=== PATIENT | male | born 1950 | race Caucasian/White ===

== ENCOUNTER 2020-09-04 20:31 | Emergency (ER) | payer BC, SELFPAY ==
--- NOTE | ~2020-09-04 | XR_ITS ---
EXAMINATION: XR HAND, RIGHT CLINICAL INFORMATION: Agent. Contusion over the hyper thenar eminence COMPARISON: None TECHNIQUE: PA, lateral, and oblique views of the right hand. FINDINGS: A small old avulsion fracture tip of ulnar styloid process. Also visualized are old fracture along the radial aspect of proximal phalanx proximal segment third digit. No visible acute fracture or dislocation seen. There is no subluxation. The joint spaces are maintained normal. XR/XR hand RT min 3V IMPRESSION: No acute fracture or dislocation seen. There is old avulsion fracture along the ulnar styloid process and a small fracture fragment radial aspect proximal phalanx ,proximal end third digit
[2020-09-04 20:32] VITALS: BP 154/91; PULSE 70; RESP 16; TEMP 36.7; O2SAT 98; BMI 27.1
--- NOTE | 2020-09-04 22:15 | ED.EXTPRO ---
HPI - Extremity Problem General Chief complaint: Extremity Injury, Upper Stated complaint: fall Time Seen by Provider: 09/04/20 22:15 Source: patient Mode of arrival: ambulatory History of Present Illness HPI Narrative: 70-year-old male presents with injury laceration to the chin, pain at the right hypothenar, mild abrasions to 4th and 5th knuckles of the right hand, pain at the left thumb without loss of range of motion. Patient also states he chipped a couple of teeth but denies any head strike or loss of consciousness. The contacts of the injuries are a game of tennis where he thought he was going to be able to return a ball successfully which resulted in the fall on outstretched hands and she can with the racquet handle pushing into the right hand. In addition, patient states that he has had some difficulty with ambulation and suspects he may have strained the hamstring on the right lower extremity. Related Data Allergies Allergy/AdvReac Type Severity Reaction Status Date / Time No Known Allergies Allergy Mild N/A Unverified 12/30/19 16:10 Review of Systems Review of Systems: As stated in HPI 10 point review of systems is otherwise negative. PMFSH Past Medical History Source: nursing notes reviewed Medical History High cholesterol Hypertension Social History Social History Alcohol intake: never Smoking Status: Never smoker Advance Directives: No Physical Exam Vital Signs: Vital Signs: Last Vital Signs Temp 98.1 F 09/04/20 20:32 Pulse 75 09/04/20 22:59 Resp 16 09/04/20 22:59 BP 153/92 H 09/04/20 22:59 Pulse Ox 100 09/04/20 22:59 Body Mass Index 27.1 VITAL SIGNS: Reviewed. GENERAL: Well developed, well nourished, in no acute distress. HEAD: Normocephalic/atraumatic EYES: PERRLA, EOMI EARS: Ext canals without abnormality NOSE: Nares patent bilateral OROPHARYNX: no oral lesions noted, posterior pharynx clear, unable to identify the teeth that were chipped but there are no intraoral lacerations or contusions NECK: Supple, no adenopathy, there is a noted 3 cm laceration to the chin LUNGS: Normal breath sounds. SpO2<98> CARDIOVASCULAR: Regular rate and rhythm without noted murmurs ABDOMEN: Soft, non-tender, non-distended with bowel sounds. RIGHT HAND: There is noted contusion over the right hypothenar without limitation of range of motion within the hand or wrist and good capillary refill. LEFT HAND: No noted abrasion, deformity, swelling/erythema, and patient continues to have full range of motion of the left thumb. NEUROLOGIC: Alert and oriented x 4. Course Course Course Narrative: 70-year-old male with history and clinical presentation consistent with mechanical fall and multiple minor injuries. Will repair the laceration under the chin and patient states his Tdap is up-to-date. Procedures Laceration Laceration 1: Site: face (Chin) Size (cm): 3.5 Description: linear Depth: simple, single layer Local Anesthetic: lidocaine 2% Amount of anesthesia used (mL): 2 Pre-repair: wound explored, irrigated extensively and deep structures intact Skin layer closed with: nylon Size (cm): 4-0 Number of sutures: 7 Technique: simple, interrupted Discharge Plan Discharge Clinical Impression: Laceration of chin without complication, Contusion of hand, right, Abrasion, Right hamstring muscle strain Patient Disposition: Home, Self-Care Instructions: Facial Laceration (ED), Care For Your Stitches (ED), Contusion in Adults (ED), Hamstring Injury (ED) Additional Instructions: 1. Please resume all home medications as prescribed. 2. Recommend [id number] Tylenol/ibuprofen as needed for aches and pains relating tear injury. 3. Sutures should be removed in no more than 5 days. May cleanse with soap and water with re-application of antibiotic ointment and coverage with a Band-Aid as possible given location your injury. 4. My recommendation is that if your hamstring continues to bother you, please discussed with your primary care provider for a work note or arrangements for your night call. Return to the ER for any worsening of your symptoms. Referrals: Marlo Strange MD [Primary Care Provider] - 2 days
[2020-09-04] MEDS: Lidocaine HCl 2 % MPF 5 ML VIAL SUBCUT (22:48)
[2020-09-04] MEDS: Ketorolac Tromethamine 15 MG/ML VIAL IM (22:56)
[2020-09-04] MEDS: Acetaminophen 325 MG TABLET 975 MG PO (22:56)
[2020-09-04 22:59] VITALS: BP 153/92; PULSE 75; RESP 16; O2SAT 100
[2020-09-04] MEDS: Bacitracin Oint 14 GM TUBE 1 APPL TOPICAL (23:41)
== END 2020-09-04 23:48 | disposition home or self-care (01) ==
PROVIDERS: Emergency Provider Student in an Organized Health Care Education/Training Program; PCP Internal Medicine
DX: S01.81XA Laceration without foreign body of other part of head, initial encounter (principal); S60.511A Abrasion of right hand, initial encounter; S60.221A Contusion of right hand, initial encounter; S86.111A Strain of other muscle(s) and tendon(s) of posterior muscle group at lower leg level, right leg, initial encounter; W01.198A Fall on same level from slipping, tripping and stumbling with subsequent striking against other object, initial encounter; Y93.73 Activity, racquet and hand sports; Y92.312 Tennis court as the place of occurrence of the external cause; Y99.9 Unspecified external cause status
CPT/HCPCS: 12013; 73130; 96372; 99284; J1885

== ENCOUNTER 2023-06-23 16:44 | Outpatient (REF) | payer MEDICARE, SELFPAY ==
--- NOTE | ~2023-06-23 | XR_ITS ---
EXAMINATION: XR CHEST CLINICAL INFORMATION: Cough. COMPARISON: None available. TECHNIQUE: 3 views of the chest. FINDINGS: Levoscoliosis of the thoracic spine with multilevel degenerative changes. Heart size is normal. There is no gross pneumothorax. No pleural effusion. Nodular densities overlying the anterior aspect of the right sixth rib and left sixth rib may represent nipple shadows versus pulmonary nodules and recommend repeat views after placement of nipple markers for confirmation. Mild streaky opacities at the left lung base may represent atelectasis/scar versus an infectious/inflammatory process. XR/XR chest 2V IMPRESSION: Nodular densities overlying the anterior aspect of the right sixth rib and left sixth rib may represent nipple shadows versus pulmonary nodules and recommend repeat views after placement of nipple markers for confirmation. Mild streaky opacities at the left lung base may represent atelectasis/scar versus an infectious/inflammatory process. This study was presented 06/25/2023 for interpretation. PSA staff will provide results to referring provider at this time.
== END 2023-06-23 16:45 | disposition home or self-care (01) ==
LOC: HO.XRAY 16:44
PROVIDERS: PCP Internal Medicine; Visit Provider Nurse Practitioner Family
DX: R05.9 Cough, unspecified (principal)
CPT/HCPCS: 71046

== ENCOUNTER 2023-11-13 06:01 | Outpatient (REF) | payer MEDICARE, SELFPAY ==
[2023-11-13 06:16] LABS: MANUAL DIFF FLAG NO
[2023-11-13 07:27] LABS: Basophils Percent Auto 0.5 % (0-2); Eosinophils Absolute Auto 0.1 X10*3/uL (0.0-0.4); Eosinophils Percent Auto 0.9 % (0-4); Hematocrit 41.7 % (42.0-52.0); Hemoglobin 14.3 g/dl (14.0-18.0); Imm Gran Abs Auto 0.03 X10*3/uL (0.00-0.03); Imm Gran Pct Auto 0.5 % (0.0-0.4); Lymphocytes Absolute Auto 1.6 X10*3/uL (1.2-4.9); Lymphocytes Percent Auto 28.3 % (20-40); Mean Corpuscular HGB Conc 34.3 g/dl (31.0-36.0); Mean Corpuscular Volume 87.6 fL (80.0-98.0); Mean Platelet Volume 9.2 fL (9.4-12.4); Monocytes Absolute Auto 0.5 X10*3/uL (0.1-1.2); Monocytes Percent Auto 9.6 % (2-11); Neutrophils Absolute Auto 3.4 x10*3/uL (2.0-8.3); Neutrophils Percent Auto 60.2 % (45-73); Platelet Count 232 X10*3/uL (160-400); Red Blood Count 4.76 X10*6/uL (4.60-5.80); White Blood Count 5.7 X10*3/uL (4.8-10.8)
[2023-11-13 07:28] LABS: Estimated Average Glucose 120 mg/dL; Hemoglobin A1c % 5.8 % (<6.0)
[2023-11-13 07:34] LABS: Creatinine Urine 170.96 mg/dL; Microalbum/Creatinine Ratio Ur 5.8 ug/mg cr (<30)
[2023-11-13 07:37] LABS: Alanine Aminotransferase 26 U/L (0-40); Albumin Level 4.4 g/dL (3.5-5.0); Alkaline Phosphatase 61 U/L (39-117); Anion Gap 13 (12-20); Aspartate Amino Transferase 20 U/L (5-37); Bilirubin Total 0.5 mg/dL (0.0-1.0); Blood Urea Nitrogen 18 mg/dL (9-16); Calcium 9.3 mg/dL (8.4-10.2); Carbon Dioxide 25 mmol/L (22-29); Chloride 108 mmol/L (96-108); Estimated Glomerular Filt Rate > 60; Glucose Random 106 mg/dL (60-115); HDL Cholesterol 35 mg/dL (>40); Potassium 4.1 mmol/L (3.3-5.1); Sodium 142 mmol/L (135-145); Total Protein 7.5 g/dL (6.5-8.0)
== END 2023-11-13 06:02 | disposition home or self-care (01) ==
LOC: HO.LAB 06:01
PROVIDERS: PCP Internal Medicine; Visit Provider Internal Medicine
DX: I10 Essential (primary) hypertension (principal); E78.2 Mixed hyperlipidemia; R73.03 Prediabetes
CPT/HCPCS: 36415; 80053; 82043; 82570; 83036; 83718; 85025

== ENCOUNTER 2024-11-22 10:00 | Emergency (ER) | payer MEDICARE, SELFPAY ==
--- OUTSIDE RECORDS SUMMARY | 2024-02-04 06:30 | XMS_ITS ---
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 Name Role Phone Brian Villasenor MD Primary Care Provider UnavailTammy Reynolds [phone] Encounters Encounter Location Date Provider Diagnosis [facility] [address] [place] [address] 02/04/2024 Tammy Fernández Plan Of Treatment No Information Progress Notes * Gerry SAAB MDOB:[birth year] (74 yo M)Acc No.[id number]:02/04/2024 Progress Notes Patient: Gerry WASHINGTON Magdaleno Provider: Sam Fernández DPM :1950 A ge:73 Y S ex:Male Date:02/04/2024 Address:[address] [id number] Pcp:Brian Villasenor MD Subjective: * Chief Complaints: * * Medical History: Objective: * Vitals: Assessment: Plan: * Treatment: * Images: * The named appointment provid er may or may not be the originator of this progress note, and it is not deemed complete until electronically signed by the appointment provider. Sign off status: Pending * Provider: Sam Fernández DPM Date: 1 Generated for Printi ng/Faxing/eTransmitting on: 0 11/22/2024 11:30 AM EDT
--- NOTE | ~2024-11-22 | XR_ITS ---
EXAMINATION: XR FOOT 1-2 VIEWS RIGHT HISTORY: PAIN, REDNESS COMPARISON: There are no prior studies available for comparison. FINDINGS: Three views of the right foot are submitted. Osseous mineralization is normal. The patient is status post internal fixation of the distal fibula with a sideplate and multiple orthopedic screws. There is no acute fracture or dislocation. The joint spaces are preserved. There is mild soft tissue swelling in the region of the 1st MTP joint. XR/XR foot RT 2V IMPRESSION: Mild soft tissue swelling in the region of the 1st MTP joint. No acute osseous abnormality is identified. Electronically signed by: Paul Torres MD 11/22/2024 11:13 AM EDT
[2024-11-22 10:29] VITALS: BP 139/63; PULSE 65; RESP 16; TEMP 36.6; O2SAT 97; BMI 26.7
[2024-11-22 10:48] LABS: MANUAL DIFF FLAG NO
[2024-11-22 10:51] LABS: Hematocrit 39.4 % (42.0-52.0); Hemoglobin 13.2 g/dl (14.0-18.0); Imm Gran Abs Auto 0.03 X10*3/uL (0.00-0.03); Imm Gran Pct Auto 0.5 % (0.0-0.4); Lymphocytes Absolute Auto 1.3 X10*3/uL (1.2-4.9); Mean Corpuscular HGB Conc 33.5 g/dl (31.0-36.0); Mean Corpuscular Hemoglobin 29.4 pg (27.0-33.0); Mean Corpuscular Volume 87.8 fL (80.0-98.0); NRBC Abs Auto 0.000 X10*3/uL (0.0-0.012); NRBC Pct Auto 0.0 /100WBC (0.0-0.2); Platelet Count 200 X10*3/uL (160-400); Red Blood Count 4.49 X10*6/uL (4.60-5.80); White Blood Count 6.4 X10*3/uL (4.8-10.8)
--- NOTE | 2024-11-22 10:55 | ED.GENADULT ---
HPI - General Adult General Chief complaint: Extremity Injury, Lower Stated complaint: R toe Pain, getting worse Time Seen by Provider: 11/22/24 10:55 History of Present Illness ED Provider: Mingo SERRA narrative: The patient is a 74-year-old male. 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 He is generally active and in good health although he is on lisinopril and atorvastatin. He has no history of any recent major medical events of any kind. The patient says that he developed pain in his right foot near the medial aspect of the foot at the first MTP joint. This morning the pain was somewhat worse and he noticed some redness on the medial aspect of the foot and on the dorsum. He has had no fever, sweats, chills. He denies any injury. He has never had pain like this before. He has no history of gout. He is worried he might have osteomyelitis. Related Data Allergies Allergy/AdvReac Type Severity Reaction Status Date / Time No Known Allergies Allergy Mild N/A Verified 11/22/24 10:31 Review of Systems Review of Systems: Yes all other systems are reviewed and are negative REPLACED BY [facility] Past Medical History Medical History High cholesterol Hypertension Social History Social History Alcohol intake: never Advance Directives: Yes Advance Directives Information Provided: Yes Advance Directives on File: No Physical Exam ED Vital Signs: Vital Signs - 24 hr 11/22/24 10:29 Temperature 97.8 F Pulse Rate 65 Respiratory Rate 16 Blood Pressure 139/63 Pulse Oximetry 97 Oxygen Delivery Method Room Air BMI result Body Mass Index 26.7 Const Other: The patient looks as if he is a healthy and vigorous 74-year-old. He does not appear in any distress. Orientation/consciousness: patient oriented x3 HENMT Other: The face is symmetrical. ?Mucous membranes moist. Eyes Other: Pupils are round equal, conjunctivae are clear, extraocular movements intact Neck Neck: Yes normal visual inspection and Yes full ROM Resp Effort & Inspection: normal respiratory effort Auscultation: clear to auscultation bilaterally Cardio Other: No cardiac murmur Rate: regular rate Rhythm: regular rhythm Heart sounds: S1 normal heart sound present and S2 normal heart sound present Skin Other: There is some mild redness to the portion of the skin on the dorsum of the foot near the 1st MTP joint. The skin on the plantar aspect of the foot is normal. There was no soft tissue swelling of the skin. Neuro Other: Normal motor and sensory function of the right foot. General: patient oriented x3, moves all extremities, no focal motor deficits and CN's II-XI intact bilaterally Extrem Other: There was no obvious swelling to the right foot. There is some slight erythema with indistinct borders near the 1st MTP joint on the dorsal aspect of the foot. The plantar aspect foot appears perfectly normal. The patient can move all the toes normally without apparent discomfort. Good pulses in the foot. Medical Decision Making Medical Decision Making MDM Narrative: The patient is here for acute right foot pain. The pain seems to be centered around the medial aspect of the foot at the 1st MTP joint. He does not have any pain on the top of the joint or on the plantar aspect of the joint. I can put the joint through an excellent range of motion. This would be unlikely to be a septic arthritis or gout. He does seem quite focally tender with palpation of the medial aspect of the joint however. This makes me think that he has some kind of acute connective tissue inflammatory process causing some pain and erythema. There was no warmth to the erythema. I do not think the erythema is clearly suggestive of a cellulitis. I think this would be an unusual presentation for Lyme disease although the patient is a somewhat outdoorsy person. Overall my impression is that this is probably a noninfectious inflammatory process that will be managed conservatively with rest, ice, elevation, and anti-inflammatories. He should plan on following up with his primary care doctor and possibly Orthopedics as well. Lab Data 11/22/24 10:43 11/22/24 10:43 Labs: Lab Results 11/22/24 Range/Units 10:43 WBC 6.4 (4.8-10.8) X10*3/uL RBC 4.49 L (4.60-5.80) X10*6/uL Hgb 13.2 L (14.0-18.0) g/dl Hct 39.4 L (42.0-52.0) % MCV 87.8 (80.0-98.0) fL MCH 29.4 (27.0-33.0) pg MCHC 33.5 (31.0-36.0) g/dl RDW 13.2 (11.0-16.0) % Plt Count 200 (160-400) X10*3/uL MPV 9.1 L (9.4-12.4) fL Immature Gran % (Auto) 0.5 H (0.0-0.4) % Neut % (Auto) 68.5 (45-73) % Lymph % (Auto) 20.9 (20-40) % Perkins % (Auto) 9.2 (2-11) % Eos % (Auto) 0.6 (0-4) % Baso % (Auto) 0.3 (0-2) % Lymph # (Auto) 1.3 (1.2-4.9) X10*3/uL Perkins # (Auto) 0.6 (0.1-1.2) X10*3/uL Eos # (Auto) 0.0 (0.0-0.4) X10*3/uL Baso # (Auto) 0.0 (0.0-0.2) X10*3/uL Abs Immat Gran (auto) 0.03 (0.00-0.03) X10*3/uL Absolute Neuts (auto) 4.4 (2.0-8.3) x10*3/uL Absolute Nucleated RBC 0.000 (0.0-0.012) X10*3/uL Nucleated RBC % (auto) 0.0 (0.0-0.2) /100WBC Sodium 144 (135-145) mmol/L Potassium 4.0 (3.3-5.1) mmol/L Chloride 110 H (96-108) mmol/L Carbon Dioxide 26 (22-29) mmol/L Anion Gap 12 (12-20) BUN 21 H (9-16) mg/dL Creatinine 0.84 (0.5-1.4) mg/dL Estim Creat Clear Calc 88.5 Estimated GFR > 60 Random Glucose 100 (60-115) mg/dL Calcium 9.1 (8.4-10.2) mg/dL Total Bilirubin 0.7 (0.0-1.0) mg/dL AST 26 (5-37) U/L ALT 29 (0-40) U/L Alkaline Phosphatase 60 (39-117) U/L C-Reactive Protein < 0.10 (< or = 0.50) mg/dL Total Protein 7.5 (6.5-8.0) g/dL Albumin 4.4 (3.5-5.0) g/dL Discharge Plan Discharge Clinical Impression: Swelling of first metatarsophalangeal (MTP) joint Patient Disposition: Home, Self-Care Additional Instructions: I believe you have some kind of acute inflammation to the medial aspect of your first metatarsophalangeal joint. The reason for this inflammation is not clear to me. Your blood testing and your x-ray show no concerning findings. I think it is unlikely that this represents an acute infectious process and therefore we are holding antibiotics today. I think this may be some kind of noninfectious acute inflammatory process related to walking or usage of your foot. Please plan on resting and keeping the foot elevated for the next few days and using ibuprofen as needed for pain. You may also ice the foot several times a day. If you have crutches they may be helpful for getting around. Please contact your regular doctor's office today for a follow up appointment soon. Additionally you can try follow up appointment with the orthopedic office. Return to the emergency room if you feel things are getting significantly worse. If you develop a fever or worsening spreading redness it may be that you will need antibiotics. Referrals: [facility] [Provider Group] Brian Villasenor MD [Primary Care Provider, Internal Medicine] Print Language: [place]
[2024-11-22 11:10] LABS: Albumin Level 4.4 g/dL (3.5-5.0); Alkaline Phosphatase 60 U/L (39-117); Anion Gap 12 (12-20); Aspartate Amino Transferase 26 U/L (5-37); Blood Urea Nitrogen 21 mg/dL (9-16); Calcium 9.1 mg/dL (8.4-10.2); Carbon Dioxide 26 mmol/L (22-29); Chloride 110 mmol/L (96-108); Creatinine Clr Calc Pharmacy 88.5; Estimated Glomerular Filt Rate > 60; Potassium 4.0 mmol/L (3.3-5.1); Sodium 144 mmol/L (135-145); Total Protein 7.5 g/dL (6.5-8.0)
--- OUTSIDE RECORDS SUMMARY | 2024-11-22 11:31 | XMS_ITS | Patient Health Record ---
Author Organization [facility] Address [address] [place] [id number] Care Team Providers Care Assayer Name Role Phone Paul Mc [phone] Reason For Referral No Information Plan Of Treatment No Information
[2024-11-22 11:33] LABS: Alanine Aminotransferase 29 U/L (0-40)
[2024-11-22 11:59] VITALS: BP 139/63; PULSE 65; RESP 16; TEMP 36.6; O2SAT 97
[2024-11-22 12:17] LABS: Uric Acid 6.8 mg/dL (3.4-7.0)
[2024-11-25 05:49] LABS: Lyme Abs Screen <0.90 index
== END 2024-11-22 11:59 | disposition home or self-care (01) ==
PROVIDERS: Emergency Provider Emergency Medicine; PCP Internal Medicine
DX: M25.474 Effusion, right foot (principal); M79.674 Pain in right toe(s)
CPT/HCPCS: 36415; 73620; 80053; 84550; 85025; 85652; 86140; 86617; 86618; 99282; 99283

== ENCOUNTER → 2024-11-22 10:50 | Outpatient (BNV) | payer MEDICARE, SELFPAY | PROVIDERS: Emergency Provider Emergency Medicine; PCP Internal Medicine; Visit Provider Radiology Diagnostic Radiology | DX: R22.41 Localized swelling, mass and lump, right lower limb (principal) | CPT/HCPCS: 73620 ==